=== PATIENT | male | born 1970 | race Caucasian/White ===

== ENCOUNTER 2019-10-09 04:08 | Inpatient (IN) ==
[2019-10-09] MEDS ORDERED: NS 1,000 ML IV ONE (04:41)
[2019-10-09] MEDS ORDERED: TORADOL IV ONE (04:41)
--- NOTE | 2019-10-09 05:31 | PROVIDER DOCUMENTATION ---
HPI-General Adult - General Chief Complaint: Flank Pain Stated Complaint: NAUSEA, WEAK, LIVER HURTS Time Seen by Provider: 10/09/19 04:25 Source: patient Allergies/Adverse Reactions: Patient Allergies Allergy/AdvReac Type Severity Reaction Status Date / Time No Known Allergies Allergy Verified 10/09/19 06:39 Home Medications: Home Medication List Medication Instructions Recorded Confirmed Last Taken Type Emtricitab/Rilpiviri/Tenof [place] 1 tab PO DAILY 10/09/19 10/09/19 Unknown History [Odefsey Tablet] - History of Present Illness -Gen Adult Nature of Presenting Problems: 49 y/o M presents to the ED complaining of "dehydration". States he has been doing meth and feels like he is dehydrated and states he feels like his muscles are achy, has a headache and is mildy nauseaed. States he felt like this in the past when he was dehydrated from working outdoors in the sun. No vomiting or diarrhea, no fever, no recent illness. Review of Systems - Adult - REVIEW OF SYSTEMS - ADULT Constitutional: reports: no symptoms reported Eyes: reports: no symptoms reported Ears, Nose, Mouth & Throat: reports: no symptoms reported Cardiovascular: reports: no symptoms reported Respiratory: reports: no symptoms reported Gastrointestinal: reports: nausea Genitourinary: reports: no symptoms reported Musculoskeletal: reports: muscle aches Integumentary: reports: no symptoms reported Neurological: reports: no symptoms reported Psychiatric: reports: no symptoms reported Endocrine: reports: no symptoms reported Hematologic/Lymphatic: reports: no symptoms reported Allergic/Immunologic: reports: no symptoms reported All Other Systems: Reviewed and Negative Past History - Adult - PAST MEDICAL HISTORY-ADULT Review of Records: reports: Old Records Reviewed, Nursing Assessment Review, Medications Reviewed, Social history reviewed & non-contributory. Major Childhood Illnesses: reports: denies history Cardiovascular: reports: denies history Respiratory: reports: denies history Gastrointestinal: reports: denies history Obstetrical/Gynecological: reports: denies history Genitourinary: reports: denies history Musculoskeletal: reports: denies history Neurological: reports: denies history Endocrine/Immune: reports: denies history Other Conditions: reports: denies history Physical Exam-General - PHYSICAL EXAM-ADULT Initial Vital Signs Reviewed: Yes - CONSTITUTIONAL General Appearance: appears well, alert, no apparent distress - EYES Eyes: PERRL/EOMI - HEAD, EARS, NOSE, MOUTH & THROAT HENMT: normocephalic/atraumatic, moist mucous membranes, normal ENT inspection - NECK Neck: non-tender, full range of motion, supple - RESPIRATORY Respiratory: chest non-tender, lungs clear, normal breath sounds - CARDIOVASCULAR Cardiovascular: normal peripheral pulses, regular rate, rhythm, no edema - GASTROINTESTINAL (ABDOMEN) Abdominal Exam: soft, tenderness (mild diffuse) - MUSCULOSKELETAL Back Exam: normal inspection, no CVA tenderness, no vertebral tenderness Extremity: normal range of motion, non-tender, normal inspection - SKIN Integumentary: normal color, normal turgor, warm/dry - NEUROLOGIC Neurologic: grossly normal, no motor/sensory deficits - PSYCHIATRIC Psych/Mental Status: normal mood/affect, normal thought content, normal thought process, oriented x 3 Progress - PLAN OF CARE/RESULTS Progress/Plan/Lab Results: Vital Signs - 8 hr 10/09/19 04:16 Temperature 98.1 F Pulse Rate 104 H Respiratory Rate 18 Blood Pressure 110/74 O2 Sat by Pulse Oximetry 100 Orders Category Date Time Status IV Insertion ORDERED Care 10/09/19 04:41 Active CBC WITH DIFF [HEME] Stat Lab 10/09/19 04:54 Results CK TOTAL [CHEM] Stat Lab 10/09/19 04:54 Received COMPREHENSIVE METABOLIC PANEL [CHEM] Stat Lab 10/09/19 04:54 Received LIPASE [CHEM] Stat Lab 10/09/19 04:54 Received URINALYSIS W/POSS RFLX CULT [URINALYSIS] Stat Lab 10/09/19 04:41 Uncollected 0.9% Sodium Chloride Inj [Ns] 1,000 ml Med 10/09/19 04:41 Active IV 999 mls/hr Ketorolac [Toradol] Med 10/09/19 04:41 Discontinued 30 mg IV NOW ONE body aches with nausea and headache will further evaluate for causes including but not limited to dehydration, rhabdo, electrolyte imbalance, intrabdominal causes Result Diagrams: 10/09/19 04:54 10/09/19 04:54 - REASSESSMENT Reassessment #1 Status: unchanged (Severe transaminitis. will further evaluate with US) Reassessment #2 Time Reassessed: 08:29 Status: unchanged - CONSULTS/PCP/HOSPITALIST Notification #1 *Consult/PCP/Hospitalist*: Isabel QUINN Time Discussed: 09:30 (Dr Brock ) Consult Disposition: Will see in ED - CHANGE OF SHIFT REPORT (ED Provider) 1 Report Given and Care Transferred to:: Dr. Parks Time of Transfer: 07:00 Items Pending: Other (US results and final disposition) Departure - Departure Date of Disposition Decision: 10/09/19 Time of Disposition Decision: 09:32 DIAGNOSIS: Hepatitis, HIV disease, History of drug abuse Disposition: ADMITTED INPATIENT 09 Certified Medical Emergency: Emergent Condition: Stable Referrals and Follow-Ups: None,PCP [Primary Care Provider] - - Critical Care Note This patient required my direct & personal management of CC.: No Attestation - Physician/ DARIA Attestation Patient care was provided by Advanced Practice Provider:: No The physician spent face to face time with patient:: Yes Advanced Practice Provider documentation review:: Supervising physician onsite and consulted in the evaluation and care of this patient. The physician did have a face to face encounter with the patient.
[2019-10-09 05:35] LABS: URINE SOURCE CLEAN CATCH
[2019-10-09 05:37] LABS: BILIRUBIN URINE SMALL (NEGATIVE); BLOOD URINE NEGATIVE (NEGATIVE); COLOR YELLOW; GLUCOSE URINE NEGATIVE (NEGATIVE); KETONE URINE NEGATIVE (NEGATIVE); LEUKOCYTES URINE NEGATIVE (NEGATIVE); NITRITE URINE NEGATIVE (NEGATIVE); PH URINE 6.5; PROTEIN URINE 30 mg/dL (NEGATIVE); SP GRAVITY URINE 1.023; TURBIDITY URINE CLEAR (CLEAR); UROBILINOGEN URINE 3 mg/dL (NORMAL)
[2019-10-09 05:52] LABS: URINE RBC <10 /HPF (<10); URINE WBC <10 /HPF (<10)
[2019-10-09 05:53] LABS: UR EPITHELIAL CELLS <10 /HPF (<10)
[2019-10-09 05:54] LABS: ESTIMATED GFR > 60
[2019-10-09 06:07] LABS: BASO# 0.21 X1000 (0.0-0.2); BASO% 4.1 % (0.0-0.8); EOS# 0.12 X1000 (0.0-0.7); EOS% 2.4 % (0.0-10.0); HEMOGLOBIN 16.7 g/dL (14.0-18.0); IMM GRAN# 0.03 X1000 (0.0-0.04); IMM GRAN% 0.6 % (0.0-0.5); LYMPH# 1.24 X1000 (1.2-3.4); LYMPH% 24.4 % (20.5-51.1); MCH 32.1 PG (27-31); MCHC 34.1 g/dL (33-37); MONO# 0.89 X1000 (0.11-0.59); MONO% 17.5 % (1.7-9.3); PLT 87 X1000 (130-400); RBC 5.21 XMIL (4.7-6.1); RDW 12.8 % (11.5-14.5); WBC 5.09 X1000 (4.8-10.8)
[2019-10-09 06:08] LABS: URINE BACTERIA NEGATIVE /HPF
[2019-10-09 06:10] LABS: AGAP 10; ALB/GLOB RATIO 0.9; ALBUMIN 3.4 g/dL (3.5-5.0); ALKALINE PHOSPHATASE 179 U/L (32-122); BUN 14 mg/dL (8-22); CALCIUM 8.6 mg/dL (8.8-10.2); CHLORIDE 93 mmol/L (98-107); CK TOTAL 77 U/L (24-204); COSMO 269; CREATININE 1.1 mg/dL (0.7-1.2); GLUCOSE 135 mg/dL (70-104); GOT 4223 U/L (10-34); GPT 5301 U/L (10-44); LIPASE 20 U/L (13-60); POTASSIUM 3.7 mmol/L (3.5-5.1); SODIUM 133 mmol/L (136-145); TCO2 30 mmol/L (25-35); TOTAL BILIRUBIN 3.45 mg/dL (0.20-1.00); TOTAL PROTEIN 7.1 g/dL (6.3-8.3)
[2019-10-09 06:13] LABS: URINE CASTS NONE SEEN; URINE CRYSTALS CA OXALATE PRESENT; URINE SMALL ROUND CELLS TRANS PRESENT; URINE YEAST NONE SEEN
[2019-10-09 07:57] LABS: INR 1.55; PROTIME 18.9 Seconds (11.0-16.0)
--- NOTE | 2019-10-09 08:05 | Diag Imaging Result Doc PS360 ---
EXAM: US GB < RUQ (LIMITED) - 10/09/2019 HISTORY: ruq pain TECHNIQUE: Ultrasound gallbladder COMPARISON: None. FINDINGS: The gallbladder appears to be partially contracted. The gallbladder kern appear thickened up to 6 mm, but this may be exaggerated by partially state. There are possibly a few tiny gallstones in the gallbladder. There are no large gallstones identified. The technologist reports negative sonographic Flower's sign. The common bile duct is normal caliber at 5 mm. There are no abnormalities of the liver or right kidney identified. The pancreas is partially obscured by bowel gas artifacts, but visualized portions of the pancreas are unremarkable. Abdominal aorta appears normal caliber. IMPRESSION: Partially contracted gallbladder. The gallbladder kern appear to be thickened, although this may be exaggerated by partially contracted state. There are possibly a few tiny gallstones in the gallbladder. The common bile duct is normal caliber at 5 mm. Electronically signed by Jeovany Sy 10/09/2019 8:03 AM
[2019-10-09 08:22] LABS: ANISOCYTOSIS 1+; BASO 4 % (0-1); EOS 3 % (1-10); LYMPHS 25 % (21-51); MONO 17 % (1-9); SEGS 50 % (42-75)
[2019-10-09] MEDS: NS 1,000 ML IV ONE ×2 (08:49→10:47)
[2019-10-09 09:54] LABS: UR AMPHETAMINES QUAL PRESUMPTIVE POSITIVE (NONE DETECT); UR BARBITUATES QUAL NONE DETECTED (NONE DETECT); UR BENZODIAZEPIN QUAL NONE DETECTED (NONE DETECT); UR CANNABINOIDS QUAL NONE DETECTED (NONE DETECT); UR COCAINE QUAL NONE DETECTED (NONE DETECT); UR METHADONE QUAL NONE DETECTED (NONE DETECT); UR OPIATES QUAL NONE DETECTED (NONE DETECT); UR OXYCODONE QUAL NONE DETECTED (NONE DETECT); UR PCP QUAL NONE DETECTED (NONE DETECT)
[2019-10-09] MEDS: NS 1,000 ML IV SCH ×3 (10:21→20:57)
[2019-10-09] MEDS ORDERED: ZOFRAN IV PRN (10:21)
[2019-10-09] MEDS ORDERED: TYLENOL PO PRN (12:46)
[2019-10-09 13:30] LABS: IRON SATURATION 58 %; TIBC 213 ug/dL; TOTAL IRON 123 ug/dL (53-167); UNBOUND IRON 90 ug/dL (112-346)
--- NOTE | 2019-10-09 15:52 | HISTORY AND PHYSICAL ---
CHIEF COMPLAINT: "Thought I had the flu. HISTORY OF PRESENT ILLNESS: Mr. Nava is a 49-year-old male who carries a past medical history of HIV, hepatitis B in the past IV drug use, tobacco use. Reports this past Thursday he started having fever, chills, nausea, left lower quadrant and low back pain with some dark orange urine, felt like he was getting dehydrated, so he came to the ED to be evaluated. Workup in the ED revealed transaminitis. Abdominal ultrasound was obtained that showed a partially contracted gallbladder with a common bile duct with normal caliber at 5 mm. He was positive for amphetamines. General surgery was consulted. They advised to consult GI given the extent to the elevation in his liver enzymes. Hepatitis profile was sent. We will continue with further treatment and management. PAST MEDICAL HISTORY: HIV diagnosed 2 years ago. He follows up in clinic in [place]. He is currently on Odyssey. Hepatitis B in the past. PAST SURGICAL HISTORY: Open compound fracture to the right patella, left hand with metal plate and 4 screws. FAMILY HISTORY: Negative for coronary artery disease. Father with colon cancer. Paternal grandmother with diabetes. SOCIAL HISTORY: One pack per day smoker since 1989. No vape. Occasional marijuana. Occasional alcohol. He reports he did IV meth last week. He did report that he does not share needles or use dirty needles. ALLERGIES: No known drug allergies. HOME MEDICATIONS: Odyssey 1 tab p.o. daily. REVIEW OF SYSTEMS: Twelve-point review of systems completely negative except for those mentioned in HPI. No headache. No vomiting. No diarrhea. No chest pain. No shortness of breath. No heart palpitations. No dysuria. He did report some fever, chills, nausea, left lower quadrant abdominal pain, low back pain as well as some right upper quadrant pain upon palpitation and dark orange urine. PHYSICAL EXAMINATION: VITAL SIGNS: Temperature is 97.8 degrees, heart rate 87, respirations 16, blood pressure 118/76, O2 is 96% on room air. GENERAL: Mr. Nava is a pleasant, 49-year-old, male who is sitting up in the bed in no acute distress. HEENT: Atraumatic, normocephalic. PERRL. NECK: Supple, trachea midline. CARDIOVASCULAR: S1, S2 appreciated. No murmurs, gallops, or rubs noted. RESPIRATORY: Lung sounds clear bilaterally. GI: Tender to the right upper and left lower quadrant. Positive bowel sounds 4 quads. EXTREMIKTIES: Lower extremities are negative for edema. SKIN: Warm and dry. He does look like he has some old needle christianson on bilateral hands as well as bruised fingernail I believe on his right middle finger. NEUROLOGIC: No focal deficits noted. DIAGNOSTIC DATA: Abdominal ultrasound partially contracted gallbladder. Gallbladder kern appear thickened, possibly a few tiny gallstones in the gallbladder. The common bile duct caliber is 5 mm. LABORATORY DATA: White count 5, hemoglobin and hematocrit 16 and 49, platelet count is 87,000. Sodium 133, potassium 3.7, BUN 14, creatinine 1.1 blood glucose is 135, T bilirubin 3.5, AST is 4223, ALT 5301, alkaline phosphatase is 179, albumin 3.4. Urinalysis: 30 protein, small bilirubin, negative for leukocytes, negative for WBCs, negative for RBCs, negative for blood. There is some oxalate crystals present. Toxicology screen was positive for amphetamines. ASSESSMENT AND PLAN: 1. Acute hepatitis, possibly hepatitis A secondary to his IV drug use. He does have a history of hepatitis B in the past. We did have Dr. Hayward look at his imaging as well as speak with the patient about his gallbladder. However, his common bile duct was only 5 mm. Currently awaiting his recommendations. We will continue him on a regular diet for now. Continue to trend his liver enzymes. Hepatitis profile has been sent off. 2. HIV, currently on Odyssey. 3. Hepatitis B in the past. 4. Tobacco use and abuse. Will need continued education on smoking cessation as well as the means to quit. 5. Further recommendation to follow physician evaluation, laboratory. 6. IV methamphetamine use. Discussed the pros of abstinence. 7. Further recommendation to follow physician evaluation, laboratory and diagnostic data. Dictated by KAI Liu for Andrew Brock MD cc: MD Siddhartha Hunter MD patient with abdominal pain and viral symptoms. LFTs markedly elevated but only mild elevation on bilirubin. no signs of obstruction on imaging. suspect HepA. patient believes that he has had Hep B in the past although one family member thought it might have been Hep C. monitor labs. abdomen benign on exam. MTDD
--- NOTE | 2019-10-09 16:13 | GASTROENTEROLOGY CONSULTATION ---
DATE: 10/09/2019 Mr. Nava was admitted to hospital after he presented to the emergency room with complaints of generalized body ache, nauseated and has not been feeling well for the past couple days. Patient has history of IV drug abuse and has been shooting methamphetamine. He has used it last time last week. He has history of HIV currently being treated with Odefsey 1 p.o. daily. He sees the HIV clinic in [place]. He has not had any fever, chills. He has not had any dizziness but complains of significant headache off and on. He has not been feeling well, has generalized body ache. Denies any chest pain, shortness breath, palpitations. Has not had any cough, sputum, hemoptysis. He does feel nauseated, has not had any vomiting but tolerated his diet fine. He has not had any abdominal cramps or abdominal pain. Denies any melena, bright red blood per rectum. PAST MEDICAL HISTORY: Significant for HIV. He also has history of acute viral hepatitis B for which he was seen at [facility]. I do not have the record of that. Also carries a diagnosis of STD. His who is from now informs me that he has had a wart gonorrhea as well as syphilis in recent past. SURGICAL HISTORY: None. MEDICATIONS: Prior to hospitalization he was on Odefsey 1 p.o. daily. ALLERGIES: No known drug allergies. SOCIAL HISTORY: He is but . He smokes, drinks as well as uses IV drugs mostly methamphetamine. FAMILY HISTORY: Noncontributory. REVIEW OF SYSTEMS: As per HPI as above. EXAMINATION: Pleasant gentleman. He is conscious, alert, appears to be in no distress. Temperature is 98.1 degrees, pulse 88 per minute, breathing 15, blood pressure 127/70. He is 5 feet 10 inches tall, he weighs 170 pounds.HEENT: Head is atraumatic, normocephalic. Conjunctivae normal, sclerae mildly icteric. Nares are patent, no discharge. Mouth mucosa moist. Throat is normal. No oral thrush noted. Neck: Supple. No lymphadenopathy or thyromegaly. Chest: Clear to auscultate. Heart: [*] no murmur. Abdomen: Flat, soft, mildly tender right upper quadrant area. No rebound tenderness, no guarding noted. Bowel sounds audible. No pedal edema, cyanosis, clubbing was noted. [address] [employer]: Grossly intact. No sensory or motor deficit. LABORATORIES: Reviewed which show WBC 5.09, hemoglobin is 16.7, hematocrit 49.0, MCV 94.0, platelets 87,000. Sodium 133, potassium 3.7, chloride 93, bicarbonate is 30, BUN is 14, creatinine 1.1, glucose 135, AST 4223, ALT 5301, alkaline phosphatase 179, total bilirubin was 3.45, albumin 3.4, PT is 18.9, INR 1.55. Toxicology amphetamine was screen was positive. IMPRESSION: 1. Acute hepatitis. If he has history of chronic hepatitis B this may be acute on chronic hepatitis B or reactivation of his hepatitis B. 2. Acute viral hepatitis A is also a possibility. 3. History of intravenous drug abuse active user. 4. Human immunodeficiency virus currently on medication. I do not have his viral load or T-cell count but most likely he is under control now. PT/INR slightly elevated. There is question of possible synthetic function of the liver being compromised. His albumin is 3.4 as well. PLAN: The plan would be to wait for his hepatitis panel that would determine what viral hepatitis he has and at that point will decide further treatment. In the meantime we will continue to hydrate him, symptomatic treatment but avoid NSAID as well as Tylenol for now. I will get Tylenol level and iron panel also to rule out underlying hemochromatosis. I have explained findings and plan to the patient and his who now all the findings. They understood and all the pertinent questions answered. cc: Ronnie Loya MD
--- NOTE | 2019-10-09 16:17 | GENERAL SURGERY CONSULTATION ---
DATE: 10/09/2019 REASON FOR CONSULTATION: Hepatitis and gallstones. CHIEF COMPLAINT: Malaise. HISTORY OF PRESENT ILLNESS: This is a 49-year-old gentleman with a longstanding history of intravenous methamphetamine abuse. He has HIV and is being treated and followed for this out of [place]. Over the last couple weeks, he developed worsening malaise. He is not feeling well. Denied any real abdominal pain. He came to the ER where he was found to have profound transaminitis and hyperbilirubinemia. He also had an ultrasound that showed gallstones and contracted gallbladder. I was consulted. MEDICAL HISTORY: HIV, hypertension, IV drug abuse. SURGICAL HISTORY: Denies any abdominal operations. SOCIAL HISTORY: He does smoke. Denies alcohol, used IV meth as recently as this week. FAMILY HISTORY: Reviewed and negative for cancer. REVIEW OF SYSTEMS: Negative otherwise except as mentioned in HPI. PHYSICAL EXAMINATION: vital signs: He is afebrile, pulse 87, blood pressure 118/76, oxygen saturation is 96%. General: He is alert in no acute distress. HEENT: No scleral icterus. No cervical mass. Cardiovascular: Normal rate. Pulmonary: No increased work with breathing. Abdomen: Soft, nontender, nondistended with no ascites and no varicosities. Integument: Warm and dry. Psychiatric: Appropriate affect. Neurologic: No gross deficits. Lymphatic: No cervical, axillary or inguinal adenopathy. LABORATORY: White count 5, hematocrit 49, platelets 87,000. INR is 1.55. Creatinine is 1.1. Bilirubin is 3.45, AST 4223, ALT 5301, alkaline phosphatase 179, lipase normal. UDS is positive for amphetamines. Hepatitis panel is pending. Ultrasound showed contracted gallbladder, stones in the lumen, mildly thickened kern, common bile duct 5 mm. ASSESSMENT AND PLAN: This is a gentleman with human immunodeficiency virus and apparent drug- induced hepatitis. He will need viral workup. I suspect the gallbladder findings are all secondary, as he has no pain and his abdominal exam is benign. His bile duct is normal caliber. If his hepatitis workup is unremarkable, we could consider MRCP to rule out bile duct obstruction, especially if his LFTs were to continue to worsen. Otherwise, I would advise against cholecystectomy in the setting of acute hepatitis cc: Siddhartha Hayward MD
[2019-10-09] MEDS: TORADOL IV PRN (20:56)
[2019-10-10] MEDS: NS 1,000 ML IV SCH ×5 (01:56→20:21)
[2019-10-10 05:38] LABS: BASO# 0.16 X1000 (0.0-0.2); BASO% 3.8 % (0.0-0.8); EOS# 0.12 X1000 (0.0-0.7); EOS% 2.9 % (0.0-10.0); HEMATOCRIT 43.6 % (42.0-52.0); INR 1.76; LYMPH% 28.6 % (20.5-51.1); MCH 32.5 PG (27-31); MCHC 34.4 g/dL (33-37); MCV 94.4 FL (81-99); MONO# 0.85 X1000 (0.11-0.59); MONO% 20.3 % (1.7-9.3); MPV 12.9 FL (7.4-10.4); NEUT# 1.86 X1000 (1.4-6.5); NEUT% 44.4 % (42.2-75.2); PLT 81 X1000 (130-400); PROTIME 20.9 Seconds (11.0-16.0); RBC 4.62 XMIL (4.7-6.1); WBC 4.19 X1000 (4.8-10.8)
[2019-10-10 05:55] LABS: ESTIMATED GFR > 60
[2019-10-10 06:08] LABS: AGAP 9; ALB/GLOB RATIO 0.7; ALBUMIN 2.6 g/dL (3.5-5.0); ALKALINE PHOSPHATASE 145 U/L (32-122); BUN 10 mg/dL (8-22); CALCIUM 8.2 mg/dL (8.8-10.2); CHLORIDE 103 mmol/L (98-107); COSMO 275; CREATININE 0.8 mg/dL (0.7-1.2); GLUCOSE 107 mg/dL (70-104); GOT 2718 U/L (10-34); GPT 4578 U/L (10-44); POTASSIUM 3.9 mmol/L (3.5-5.1); SODIUM 138 mmol/L (136-145); TCO2 26 mmol/L (25-35); TOTAL BILIRUBIN 3.71 mg/dL (0.20-1.00); TOTAL PROTEIN 6.1 g/dL (6.3-8.3)
[2019-10-10 12:58] LABS: HEPATITIS PROFILE ACUTE SEE COMMENTS
[2019-10-10] MEDS ORDERED: SODIUM CHLORIDE 0.9% INJ SCH (14:15)
--- NOTE | 2019-10-10 14:34 | PROGRESS NOTE ---
DATE: 10/10/2019 SUBJECTIVE: The patient has no major complaints. He looks well. OBJECTIVE: Vital Signs: Blood pressure 124/74, heart rate of 80, respiratory rate of 16, temperature 98.5 degrees. 95% on room air. Cardiovascular: Regular rate and rhythm. Pulmonary: Bilateral breath sounds clear to auscultation. Gastrointestinal: Abdomen soft, nontender, nondistended. Bowel sounds are positive. PROBLEM LIST: 1. Acute hepatitis or ischemic injury. We are still waiting on laboratory data to come back. As far as serologies hepatitis A has both B and A axis which suggests he has acute hepatitis A in the setting of possibly chronic hepatitis B. We will get the rest of the tests and see how he does. We will continue supportive measures. Most likely this is hepatitis A acutely, but he seems to be doing better. GI and surgery are following. Recommended getting an MRCP which has been obtained. I just do not have the final information. 2. HIV, which appears to be stable. He is currently on medications he needs for his ART. We will continue to follow. cc: Barak Dunn MD
[2019-10-10] MEDS: PROTONIX IV SCH (14:47)
--- NOTE | 2019-10-10 15:20 | Diag Imaging Result Doc PS360 ---
MRI MRCP (ABD W/O CONTRAST) - 10/10/2019 INDICATION: acute hepatitis TECHNIQUE: COMPARISON: Ultrasound from 10/09/2019 FINDINGS: There is mild splenomegaly. The spleen measures 14.7 x 7.5 cm. The gallbladder is very collapsed. No visible gallstones. No biliary dilation. The liver, pancreas, adrenals, and kidneys are normal. The common bile duct measures 3.8 mm. The main pancreatic duct is normal. No adenopathy. No free fluid. IMPRESSION: 1. Mild splenomegaly. 2. The gallbladder is collapsed, nonspecific. Probably due to recent food ingestion. Electronically signed by Roque Friend 10/10/2019 3:18 PM
--- NOTE | 2019-10-10 21:48 | GASTROENTEROLOGY PROGRESS NOTE ---
DATE: 10/10/2019 SUBJECTIVE: The patient states he feels a little better. He still reports some nausea and has not been able to eat much. OBJECTIVE: Vital Signs: Temperature 98.5 degrees, pulse 80, respirations 16, blood pressure 124/74. General: Patient is awake and alert in no acute distress. LABORATORY: Hematology: WBC 4.19, hemoglobin 15.0, hematocrit 43.6, MCV 94.4, platelets 81,000. Coagulation ProTime 20.9, INR 1.76. Chemistry: Sodium 138, potassium 3.9, chloride 103, CO2 26, BUN 10, creatinine 0.8, glucose 107, calcium 8.2. Iron 123. Percent saturation 58, ferritin 3680, total bilirubin 3.71, AST 2718, ALT 4578, alkaline phosphatase 145, total protein 6.1, albumin 2.6, lipase 20. Hepatitis profile showed hepatitis B surface antigen nonreactive. Hepatitis B core antibody IgM reactive. Hepatitis C nonreactive. Hepatitis A viral antibody IgM is reactive. ASSESSMENT AND PLAN: 1. Acute hepatitis. Further hepatitis B testing has been ordered. Recommend symptomatic treatment and supportive care. He also has acute hepatitis A. We will continue to follow. 2. Human immunodeficiency virus and history of hepatitis B. Continue current medications. 3. We will repeat his liver function tests tomorrow. Waiting on further hepatitis B studies. 4. Questionable gallstones. Had an MRCP that showed mild splenomegaly, gallbladder collapse, nonspecific. No visible gallstones. No biliary dilatation. Liver, pancreas, adrenals and kidneys were normal. Common bile duct normal at 3.8 mm. Pancreatic duct was normal. No adenopathy and no free fluid noted. PLAN: Continue symptomatic treatment and supportive care. Waiting on other hepatitis B testing. Repeat liver function test tomorrow. Further plans to be made according to his progress. I have discussed this case with Dr. Loya. Dictated by KAI Awad for Ronnie Loya MD cc: KAI Quinonez MD [facility]
[2019-10-11] MEDS: NS 1,000 ML IV SCH ×3 (03:22→16:03)
[2019-10-11 05:40] LABS: BASO% 2.2 % (0.0-0.8); EOS# 0.11 X1000 (0.0-0.7); EOS% 2.4 % (0.0-10.0); HEMATOCRIT 45.1 % (42.0-52.0); HEMOGLOBIN 15.4 g/dL (14.0-18.0); LYMPH# 1.22 X1000 (1.2-3.4); LYMPH% 27.1 % (20.5-51.1); MCH 32.3 PG (27-31); MCHC 34.1 g/dL (33-37); MCV 94.5 FL (81-99); MPV 12.7 FL (7.4-10.4); NEUT# 2.17 X1000 (1.4-6.5); NEUT% 48.3 % (42.2-75.2); PLT 92 X1000 (130-400); RBC 4.77 XMIL (4.7-6.1); RDW 13.3 % (11.5-14.5)
[2019-10-11 05:48] LABS: BANDS 4 % (0-1); EOS 2 % (1-10); LYMPHS 28 % (21-51); MONO 12 % (1-9); SEGS 52 % (42-75)
[2019-10-11 06:05] LABS: AGAP 11; ALB/GLOB RATIO 0.8; ALBUMIN 2.7 g/dL (3.5-5.0); ALKALINE PHOSPHATASE 147 U/L (32-122); BUN 9 mg/dL (8-22); CALCIUM 8.5 mg/dL (8.8-10.2); CHLORIDE 98 mmol/L (98-107); COSMO 266; CREATININE 0.8 mg/dL (0.7-1.2); ESTIMATED GFR > 60; GLUCOSE 90 mg/dL (70-104); GOT 1436 U/L (10-34); GPT 3760 U/L (10-44); POTASSIUM 3.8 mmol/L (3.5-5.1); SODIUM 134 mmol/L (136-145); TCO2 25 mmol/L (25-35); TOTAL BILIRUBIN 4.62 mg/dL (0.20-1.00); TOTAL PROTEIN 6.3 g/dL (6.3-8.3)
[2019-10-11] MEDS: TORADOL IV PRN (06:25)
--- NOTE | 2019-10-11 14:49 | PROGRESS NOTE ---
DATE: 10/11/2019 Mr. Nava is a 49-year-old male with chronic HIV and hepatitis infection. He has a history of IV drug abuse and uses his foot as main injection site. He says that he is done doing drugs for now. He came in because he thought he had the flu. He presented with abdominal pain and generalized weakness. He reports that he has been having some diarrhea today, feeling weak and tired. OBJECTIVE: Blood pressure is 118/64, heart rate 70, temperature is 97.8 degrees, respirations 18, oxygen saturation is 97 on room air. I's and O's: urine void of 1300 mL now negative balance of 1740. PHYSICAL EXAM: General: He is a well-appearing up in bed young male. He is in no distress. HEENT: There is redness in the sclerae but he is anicteric. Cardio: Heart regular rate and rhythm. No murmurs, gallops, or rubs. Lungs: Clear to auscultation bilaterally. Abdomen: Soft, nondistended, nontender. Bowel sounds are present. No splenomegaly. No hepatomegaly. Extremities: Pedal pulses are 2+ bilaterally. There is no edema. There is a scab on his right dorsum of his foot uses for his injection site. Skin: slightly Icteric. LABS: White blood cell count 4.5, hemoglobin 15.4, hematocrit 45.1, platelet count is 92,000. Glucose is 90, sodium is 134, potassium is 3.8, chloride is 98, bicarb is 25, BUN is 9, creatinine is 0.8, calcium is 8.5, AST is 1436, ALT is 3760, albumin is 2.7, alkaline phosphatase is 147, total bilirubin is 4.62. Hepatitis panel reveals hepatitis A viral IgM positive, hepatitis B surface antigen negative, hepatitis B core antibody IgM positive. ASSESSMENT: A 49-year-old male with acute hepatitis A infection with underlying hepatitis B. According to up to date he could be immune to hepatitis due to an natural infection not necessarily a chronic infection 1. Acute hepatitis A. 2. Hyponatremia. 3. Hypocalcemia. 4. Thrombocytopenia. 5. Intravenous drug use and abuse. 6. Hepatitis B - awaiting labs to determine if chronic vs immune PLAN: 1. Manage clinically 2. IV fluids. 3. Replete electrolytes if they trend further from normal 4. Check platelets and CBC in the morning Dictated by Florence Ervin, Medical Student for Barak Dunn MD This chart was documented by, Florence Ervin, Medical Student and accurately reflects the services performed, treatment plan and medical decisions as attested by the providers signature Barak Dunn MD. cc: Barak Dunn MD [facility]
--- NOTE | 2019-10-11 14:56 | GASTROENTEROLOGY PROGRESS NOTE ---
DATE: 10/11/2019 SUBJECTIVE: Patient was awake, alert, no acute distress. He states he is feeling better. He has been able to eat some of his diet. OBJECTIVE: Vital Signs: Temperature 97.5 degrees, pulse 71, respirations 18, blood pressure 124/76. General: Patient is awake and alert. No acute distress. LABORATORY: Hematology: WBC 4.50, hemoglobin 15.4, hematocrit 45.1, MCV 94.5, platelets 92,000. Chemistry: Sodium 134, potassium 3.8, chloride 98, CO2 25, BUN 9, creatinine 0.8, glucose 90, calcium 8.5, total bilirubin 4.62, AST 1,436, ALT 3,760, alkaline phosphatase 147, albumin 2.7. Serology: Hepatitis panel shows nonreactive hepatitis B surface antigen, reactive hepatitis B core antibody, IgM, nonreactive hepatitis C antibody, hepatitis A viral antibody IgM reactive, hepatitis B surface antibody 40.6. ASSESSMENT AND PLAN: Acute hepatitis with elevated liver function tests. The patient has acute hepatitis A. The patient has history of hepatitis B. His hepatitis B surface antibody is 40.6, either due to immunity from past infection or recurrent infection of hepatitis B. Waiting on B DNA viral load. Patient will be placed in isolation for hepatitis A. His liver function tests showing elevated bilirubin but AST, ALT, and alkaline phosphatase slightly improved. We will continue to follow. We will repeat his PT/INR tomorrow and liver function tests. Further plans will be made as needed. I have discussed this case with Dr. Silverman. Dictated by KAI Awad for Ronnie Loya MD cc: KAI Quinonez MD
[2019-10-11] MEDS: PROTONIX IV SCH (16:00)
[2019-10-12] MEDS: NS 1,000 ML IV SCH ×3 (01:30→18:42)
[2019-10-12 05:37] LABS: INR 1.35; PROTIME 16.9 Seconds (11.0-16.0)
[2019-10-12 06:09] LABS: AGAP 10; ALB/GLOB RATIO 0.7; ALBUMIN 2.7 g/dL (3.5-5.0); ALKALINE PHOSPHATASE 145 U/L (32-122); BUN 9 mg/dL (8-22); CHLORIDE 101 mmol/L (98-107); COSMO 273; CREATININE 0.7 mg/dL (0.7-1.2); ESTIMATED GFR > 60; GLUCOSE 101 mg/dL (70-104); GOT 628 U/L (10-34); GPT 2574 U/L (10-44); POTASSIUM 3.8 mmol/L (3.5-5.1); SODIUM 137 mmol/L (136-145); TCO2 26 mmol/L (25-35); TOTAL BILIRUBIN 5.05 mg/dL (0.20-1.00); TOTAL PROTEIN 6.6 g/dL (6.3-8.3)
--- NOTE | 2019-10-12 10:16 | PROGRESS NOTE ---
DATE: 10/12/2019 SUBJECTIVE: Mr. Nava is a 49-year-old man with chronic HIV and hepatitis B infection, history of IV drug abuse that he uses his foot as his main injection site. He says that he is done doing drugs for now. He came in because he thought he had the flu. He presents with abdominal pain and generalized soreness He was referred to GI yesterday and they agreed upon the diagnosis we gave, and they are also awaiting the hepatitis B viral loads. Today, he reports that his loose stools have gotten better. They are more formed. He also notes that the stools have been willard to white in color since he has been admitted. OBJECTIVE: Vital Signs: blood pressure is 126/80, heart rate 76, temperature 98.1 degrees, respirations 18, oxygen saturation 96 on room air. I/Os -2195 mL balance with 3175 mL urine void. PHYSICAL EXAM: General: well-appearing male, up in bed. He is in no distress. HEENT: There is no redness in the sclerae, anicteric. Heart: Regular rate and rhythm. No murmurs, gallops, or rubs. Lungs: Clear to auscultation bilaterally. Abdomen: Soft, nondistended, nontender. Bowel sounds are present. No splenomegaly. No hepatomegaly. Extremities: Pedal pulses are 2+ bilaterally. There is no edema. There is a scar on the right dorsum of his foot that he uses for his injection site. The heels of his foot are markedly cracked and dry. Skin: Skin is less icteric today. LABS: No new CBC. Chemistries: Sodium 137, potassium 3.8, chloride 101, bicarbonate 26. BUN 9, creatinine 0.7, glucose 101, calcium 8.0. AST 628, ALT is 2544, total protein is 6.6, albumin is 2.7, alkaline phosphatase is 145, total bilirubin is 5.05. PT is 16.9, INR is 1.35. ASSESSMENT: This is a 49-year-old male with acute hepatitis A infection with underlying hepatitis B and human immunodeficiency virus. According to up-to-date, he could be immune hepatitis due to natural infection not necessarily a chronic hepatitis B infection. 1. Acute hepatitis today. 2. Hypocalcemia. 3. Thrombocytopenia. 4. Intravenous drug use and abuse. 5. Hepatitis B pending viral DNA counts 6. Transaminitis. 7. Hypoalbuminemia. 8. Hyperbilirubinemia. 9. Chronic human immunodeficiency virus infection. 10. Acholic stool. PLAN: 1. Manage clinically. 2. IV fluids. 3. High-protein diet. 4. Continue heart therapy. 5. Discharge pending viral loads and clinical improvement of symptoms. DISPOSITION: I think we can send him home today or tomorrow since his labs are trending down and he did not have any symptoms. The patient is ready to go back home and get back to work. Dictated by Florence Ervin, Medical Student for Barak Dunn MD This chart was documented by, Florence Ervin, Medical Student and accurately reflects the services performed, treatment plan and medical decisions as attested by the providers signature Barak Dunn MD. cc: Barak Dunn MD MTDD
[2019-10-12] MEDS: PROTONIX IV SCH (15:25)
--- NOTE | 2019-10-12 15:51 | GASTROENTEROLOGY PROGRESS NOTE ---
DATE: 10/12/2019 SUBJECTIVE: Patient is awake and alert, in no acute distress. He denies complaints today. He has been able to eat 100% of his meal. No reported nausea or vomiting. No reported abdominal pain. OBJECTIVE: Vital Signs: Temperature 98.1 degrees, pulse 76, respirations 18, blood pressure 126/80. General: Patient is awake and alert, in no acute distress. LABORATORY: Hematology: WBC 4.50, hemoglobin 15.4, hematocrit 45.1, MCV 94.5, platelets 92,000. Coagulation: ProTime 16.9, INR 1.35. Chemistry sodium 137, potassium 3.8, chloride 101, CO2 26, BUN 9, creatinine 0.7, glucose 101, calcium 8.0, total bilirubin 5.05, AST 628, ALT 2574, alkaline phosphatase 145. ASSESSMENT AND PLAN: 1. Elevated liver function tests. 2. Acute hepatitis A. 3. History of hepatitis B and HIV. Waiting on hepatitis B, other serology results. 4. Elevated bilirubin. PLAN: Continue current management. The patient is feeling better and is hoping to be discharged soon. Once he is discharged recommend he have repeat liver function test in 2 weeks and follow up with us in the office in 3 weeks. I have given him a contact card to call and make an appointment. We will follow up on the rest of the hepatitis B viral studies which are pending. Further plans to be made as needed. I have discussed this case with Dr. Lynn. Dictated by KAI Awad for Ronnie Loya MD cc: KAI Quinonez MD
[2019-10-13 05:24] LABS: BASO# 0.05 X1000 (0.0-0.2); BASO% 0.9 % (0.0-0.8); EOS# 0.13 X1000 (0.0-0.7); EOS% 2.3 % (0.0-10.0); HEMATOCRIT 43.3 % (42.0-52.0); HEMOGLOBIN 14.8 g/dL (14.0-18.0); IMM GRAN# 0.03 X1000 (0.0-0.04); IMM GRAN% 0.5 % (0.0-0.5); LYMPH# 1.29 X1000 (1.2-3.4); LYMPH% 23.3 % (20.5-51.1); MCH 32.4 PG (27-31); MCHC 34.2 g/dL (33-37); MCV 94.7 FL (81-99); MONO# 1.01 X1000 (0.11-0.59); MONO% 18.2 % (1.7-9.3); MPV 12.3 FL (7.4-10.4); NEUT# 3.03 X1000 (1.4-6.5); NEUT% 54.8 % (42.2-75.2); PLT 129 X1000 (130-400); RBC 4.57 XMIL (4.7-6.1); RDW 13.9 % (11.5-14.5); WBC 5.54 X1000 (4.8-10.8)
[2019-10-13 06:06] LABS: AGAP 9; ALB/GLOB RATIO 0.8; ALBUMIN 2.8 g/dL (3.5-5.0); ALKALINE PHOSPHATASE 152 U/L (32-122); BUN 9 mg/dL (8-22); CALCIUM 8.5 mg/dL (8.8-10.2); CHLORIDE 100 mmol/L (98-107); COSMO 271; CREATININE 0.8 mg/dL (0.7-1.2); ESTIMATED GFR > 60; GLUCOSE 97 mg/dL (70-104); GOT 402 U/L (10-34); GPT 1869 U/L (10-44); POTASSIUM 4.2 mmol/L (3.5-5.1); SODIUM 136 mmol/L (136-145); TCO2 27 mmol/L (25-35); TOTAL BILIRUBIN 6.49 mg/dL (0.20-1.00); TOTAL PROTEIN 6.4 g/dL (6.3-8.3)
--- NOTE | 2019-10-13 09:49 | PROGRESS NOTE ---
DATE: 10/13/2019 SUBJECTIVE: Mr. Nava is a 49-year-old male with chronic HIV infection and previously exposed to hepatitis B and history of IV drug use and abuse. He has presented to the emergency room thinking he had the flu. His symptoms have been progressing since he has been here. We diagnosed him with hepatitis A according to his labs. This morning he says the stool was slimy and willard in color. He feels well overall, and he was able to shower himself today. OBJECTIVE: Vital Signs: His blood pressure was 109/63, heart rate 76, temperature 97.8 degrees, respirations 18, oxygen saturation 100% on room air. I and O with negative balance of 245 mL, with 2525 mL urine void. General: On physical exam, he is a well-appearing young male in bed. He is in no distress. HEENT: Mucosa is moist. Eyes are anicteric. Cardiovascular: S1 and S2. Regular rate and rhythm. No murmurs, gallops, or rubs. Lungs: Clear to auscultation bilaterally. Abdomen: Soft, nondistended, nontender. Bowel sounds are present. No hepatosplenomegaly. Extremities: Pedal pulses are 2+ bilaterally. No edema. There is still a scab on the dorsum of his foot from his injection site. Skin: Icteric, as it was yesterday. Central Nervous System: Awake, alert, and oriented x3. LABS: White blood cell 5.54, hemoglobin 14.8, hematocrit 43.8, platelet 129,000. Chemistries: Sodium 136, potassium 4.2, chloride 100, bicarbonate 27, BUN 9, creatinine 0.8, glucose 97, calcium 8.5. Liver enzymes, AST 402, ALT 1869, total protein 6.4, albumin 2.8, alkaline phosphatase 125, total bilirubin 6.49, direct bilirubin 4.9. ASSESSMENT AND PLAN: A 49-year-old male with acute hepatitis A infection with resolved or immune to hepatitis B and human immunodeficiency virus underlying. 1. Acute hepatitis A. We are going to do IV fluids. Continue hydration. 2. Hypocalcemia. Encourage calcium supplementation to a diet. 3. Thrombocytopenia, which is improving. 4. Hypoalbuminemia. We are going to get him to drink some Ensure protein. its a negative acute phase reactant, should resolve after infection. 5. Intravenous drug use and abuse. Counseled on cessation. 6. Hepatitis B, awaiting labs to determine if chronic versus immune. 7. Chronic human immunodeficiency virus infection. Continue highly active retroviral therapy ([facility]RE[facility]AN). 8. Transaminitis f/u GI in 2 weeks 9. Hyperbilirubinemia, f/u with Gastrointestinal in 2 weeks. This could just be the peak as per the natural course of the illness 10. Acholic stools should also declined within the natural course of the infection. Dictated by Florence Ervin, Medical Student for Barak Dunn MD This chart was documented by, Florence Ervin, Medical Student and accurately reflects the services performed, treatment plan and medical decisions as attested by the providers signature Barak Dunn MD. cc: Barak Dunn MD MTD
[2019-10-13] MEDS ORDERED: PATIENT'S OWN MED PO SCH (11:00)
[2019-10-13 11:32] VITALS: BP 112/80
--- NOTE | 2019-10-13 19:03 | GASTROENTEROLOGY PROGRESS NOTE ---
DATE: 10/13/2019 SUBJECTIVE: Patient was getting his belongings packed up in his room. He is being discharged today. Lab work reviewed from today. Hepatitis B results are back, showing undetected B DNA. Hepatitis B-E antigen is negative. Hepatitis B-E antibody is positive. Hepatitis B surface antigen body is 40.6, indicating immunity. OBJECTIVE: Vital Signs: Temperature 97.5 degrees, pulse 82, respirations 18, blood pressure 112/80. General: Patient is awake and alert, in no acute distress. He is being discharged today. LABORATORY: Hematology: WBC 5.54, hemoglobin 14.8, hematocrit 43.3, platelets 129,000. Chemistry: Sodium 136, potassium 4.2, chloride 100, CO2 27, BUN 9, creatinine 0.8, glucose 97, calcium 8.5, total bilirubin 6.49, AST 402, ALT 1869, alkaline phosphatase 152. Serology studies showing hepatitis B surface antibody 40.6, indicating immunity. Hepatitis B DNA quantitative is undetected. Hepatitis B-E antigen antibody showing B-E antigen negative, antibody positive. ASSESSMENT AND PLAN: 1. Acute hepatitis A. Liver function tests are slowly improving. Bilirubin is slightly higher. Recommend patient repeat his lab work in 2 weeks and follow in our office in approximately 3 weeks. 2. History of hepatitis B. He has developed immunity. 3. Chronic human immunodeficiency virus, on therapy. Follows with Infectious Disease in [place]. 4. Elevated liver function tests. Repeat labs in 2 weeks and follow in our office in 3 weeks. Further plans will be made according to his progress. He will be discharged home today. I have discussed this case with Dr. Loya. Dictated by KAI Awad for Ronnie Loya MD cc: KAI Quinonez MD
--- NOTE | 2019-10-13 21:04 | DISCHARGE SUMMARY ---
ADMISSION DATE: 10/09/2019 DISCHARGE DATE: 10/13/2019 DISCHARGE DIAGNOSES: 1. Was acute hepatitis A. 2. Human immunodeficiency virus but with controlled counts. 3. History of hepatitis B with possible reinfection or at least reveal-exposure but he has overcome the infection. 4. Drug abuse which includes amphetamines and IV drugs briefly. HOSPITAL COURSE: Briefly, it is a 49-year-old male who came in with jaundice, extremely elevated transaminases. GI was consulted, which was Dr. Loya. Surgery was consulted as well because of questionable concern over his gallbladder, but they felt that was negative. His MRCP did not show anything showing biliary obstruction. His liver enzymes were quite impressively elevated. AST on admission was 4223, was 402 at the time of discharge. ALT was 5301 and 1869 at discharge. He was hydrated for several days. INR was analyzed but was initial 1.5, was 1.3 the day before discharge. There was no bleeding. He was tolerating p.o. UDS was positive for amphetamines. His hep panel showed a hep B core antibody IgM that was reactive, a hep A viral a antibody that was reactive. His hep B antigen was negative, suggesting no infection. Hep B E antibody was positive, suggesting previous infection. His hep B surface antibody was positive, which suggests that he has overcome infection. Most likely, he had chronic hep B. He is going to follow up with Dr. Loya in 1 week. Avoid alcohol, avoid Tylenol, avoid illicit substances, and we will discharge in stable condition. His only medication is his Odefsey, which is emtricitabine, rilpivirine, and tenofovir, which is his HIV ART treatment. Will follow up with his ID doctor for that purpose. 32 minute discharge. cc: Barak Dunn MD
== END 2019-10-13 12:48 | disposition home or self-care (01) | DRG 442 ==
LOC: ED 04:08 → EDIPHOLD 10:02 → SUATTDRO 10:02 → 1N 11:55
PROVIDERS: ATTEND Internal Medicine